=== PATIENT | male | born 1965 | race American Indian/Alaskan Native ===

== ENCOUNTER 2019-06-02 09:27 | Day surgery (SDC) | payer OTHER ==
[2019-06-02] MEDS ORDERED: NACL 0.9% 1000 ML 1,000 ML IV SCH (10:00)
[2019-06-02] MEDS ORDERED: WATER FOR IRRIG STERILE IR ONE (10:46)
[2019-06-02] MEDS ORDERED: DIPRIVAN 10 MG/ML IV ONE ×2 (12:42)
--- NOTE | 2019-06-02 13:20 | Operative Report ---
Operative Report Operative Report: Procedure: Colonoscopy with multiple cold Snare polypectomies, Multiple hot biopsy Polypectomies, multiple Hemoclip applications ablation of polyp base . Attending physician: Glen Pastor M.D. Buoy Tender: Glen Pastor M.D. Indication: Patient is a 54-year-old male who presents for screening colonoscop y. This colonoscopy serves to evaluate patient so that treatment may be directed based on the findings. Consent: Informed consent was obtained after advising the patient and family regarding nature of this procedure, its indications, potential benefits as well as possible complications including but not limited to bleeding perforation and adverse reaction to medication, infection as well as other cardiopulmonary complications. An informed written and verbal consent was then obtained after due opportunity was provided for questions and answers. Monitoring: Patient was monitored continuously with pulse oximetry and electrocardiographic recordings as well as blood pressure recordings. Vital signs remained stable throughout this procedure with no untoward events. Preoperative assessment: Patient was assessed immediately prior to this procedure for capacity to tolerate monitored anesthesia care and moderate sedation as well as general anesthesia. Patient's ASA classification is 2, Ma llampati class is 2, Hyomental distance is 3. Instrument: Olympus video colonoscope.: CF-HQ 190L Medications: Propofol given intravenously in divided doses. For details please refer to anesthesia records. Description of procedure: Patient was placed in the left lateral decubitus position after achieving sedation, a digital rectal examination was performed following which the colonoscope was introduced into the anal verge and advanced to the cecum which was identified by the cecal valve, the appendiceal orifice, as well as by the cecal strap and direct transillumination. The colonoscope was subsequently withdrawn with careful inspection of all mucosal surfaces. Patient tolerated this procedure well and was subsequently taken to the recovery room. The following findings were noted. Findings: Patient had 3 flat polyps measuring partly 6-7 mm in the sigmoid colon which were removed by hot biopsy polypectomy and retrieved. There was a 1 cm sessile polyp in the sigmoid colon which was removed by cold snare polypectomy. A Hemoclip was applied at the polyp base. There was a polyp at the hepatic flexure at approximately 1 cm. It was flat. It was removed by cold snare polypectomy and removed. A Hemoclip was applied and the polyp base. The base of the polyp was also ablated. Patient had substantial retained stool in the cecum ascending colon and transverse colon as well as also in the descending colon. On the retroflexed view of the anal verge, patient had internal hemorrhoids Impression: Multiple sigmoid colon polyps status post hot biopsy polypectomy Sigmoid colon polyp status post cold snare polypectomy and he multiple clip application Hepatic flexure polyp status post cold snare polypectomy ablation and Hemoclip application Poor colonoscopic preparation with substantial retained stool Internal hemorrhoids. Plan: Follow pathology report. High-fiber diet. Consider repeat colonoscopy in one year due to poor colonoscopic preparation
[2019-06-02 13:45] VITALS: BP 137/87
--- NOTE | 2019-06-02 15:23 | Anesthesia Consultation ---
Anesthesia Consult and Med Hx Date of service: 06/02/19 - Airway Anesthetic Teeth Evaluation: Good ROM Head & Neck: Adequate Mental/Hyoid Distance: Adequate Mallampati Class: Class II Intubation Access Assessment: Good - Pulmonary Exam CTA: Yes - Cardiac Exam Cardiac Exam: RRR - Pre-Operative Health Status ASA Pre-Surgery Classification: ASA3 Proposed Anesthetic Plan: MAC (SANG, Asthma, HTN ) - Pulmonary Hx Smoking: Yes Hx Sleep Apnea: Yes - Cardiovascular System Hx Hypertension: Yes
--- NOTE | 2019-06-02 15:23 | Anesthesia Day of Surgery ---
Anesthesia Day of Surgery - Day of Surgery Patient Examined: Yes Patient H&P Reviewed: Yes Patient is NPO: Yes
== END 2019-06-02 09:28 | disposition home or self-care (01) ==
LOC: GIO 09:27
PROVIDERS: ATTEND Internal Medicine Gastroenterology
DX: Z12.11 Encounter for screening for malignant neoplasm of colon (principal); K63.5 Polyp of colon; D36.15 Benign neoplasm of peripheral nerves and autonomic nervous system of abdomen; K21.9 Gastro-esophageal reflux disease without esophagitis; G47.33 Obstructive sleep apnea (adult) (pediatric); K64.8 Other hemorrhoids; Z80.0 Family history of malignant neoplasm of digestive organs; Z87.891 Personal history of nicotine dependence; Z79.899 Other long term (current) drug therapy; Z91.012 Allergy to eggs; Z91.030 Bee allergy status; Z88.8 Allergy status to other drugs, medicaments and biological substances
CPT/HCPCS: 45384; 45385; 88305; 88342; J2704; J7030